=== PATIENT | female | born 1985 | race African-American/Black ===

== ENCOUNTER 2017-03-26 13:54 | Emergency (ER) | payer OTHER ==
[~2017-03-26] VITALS: Ht 162.6 cm; Wt 70.3 kg
[2017-03-26] MEDS ORDERED: RIZA10TA PO (14:18)
[2017-03-26] MEDS ORDERED: IV NORMAL SALINE 1,000ML 1,000 ML IV ONE (15:15)
[2017-03-26] MEDS ORDERED: diphenhydrAMINE 50 MG/ML VIAL IVP ONE (15:15)
[2017-03-26] MEDS ORDERED: DEXAMETHASONE SOD PHOS 4 MG/ML VIAL IV ONE (15:15)
[2017-03-26] MEDS ORDERED: KETOROLAC 15 MG/ML VIAL. IV ONE (15:15)
[2017-03-26] MEDS ORDERED: PROCHLORPERAZINE 10 MG/2 ML VIAL. IV ONE (15:15)
[2017-03-26 16:44] VITALS: BP 117/78
--- NOTE | 2017-03-26 17:23 | ED.ADGEN ---
Past History Past Medical History: No Pertinent History Past Surgical History: No Surgical History Alcohol Use: None Drug Use: None Adult General HPI HPI Patient is a 89-year-old woman, with history of migraine headaches for which she follows with neurology, who presents to the emergency department with complaint of persistent headache over the past 3 days. Patient states she has an appointment tomorrow to follow up with her neurologist and for referral to the migraine specialist. She has been taking her propranolol and other medications at home without relief. She states she's been experiencing typical symptoms of a migraine headache, including photophobia, nausea and vomiting, and left-sided head pain. She denies any change in her symptoms, any weakness, numbness, tingling, fevers or chills, abdominal pain, urinary complaints, exposures or travel. Review of Systems Review of Systems Constitutional: Denies fever or chills [] Eyes: Denies change in visual acuity, redness, or eye pain [] HENT: Denies nasal congestion or sore throat [] Respiratory: Denies cough or shortness of breath [] Cardiovascular: No additional information not addressed in HPI [] GI: Denies abdominal pain, bloody stools or diarrhea [] nausea and vomiting. : Denies dysuria or hematuria [] Musculoskeletal: Denies back pain or joint pain [] Integument: Denies rash or skin lesions [] Neurologic: Denies focal weakness or sensory changes [] Headache, photophobia. Endocrine: Denies polyuria or polydipsia [] Current Medications Current Medications Current Medications Medications (Trade) Dose Ordered Sig/Sina Start Time Stop Time Status Last Admin Dose Admin Dexamethasone Sodium Phosphate (Decadron) 4 mg 1X ONCE 03/26/17 15:15 03/26/17 15:16 DC 03/26/17 15:43 4 MG Diphenhydramine HCl (Benadryl) 25 mg 1X ONCE 03/26/17 15:15 03/26/17 15:16 DC 03/26/17 15:44 25 MG Ketorolac Tromethamine (Toradol) 10 mg 1X ONCE 03/26/17 15:15 03/26/17 15:16 DC 03/26/17 15:43 10 MG Prochlorperazine Edisylate (Compazine) 10 mg 1X ONCE 03/26/17 15:15 5/29/17 15:16 DC 03/26/17 15:43 10 MG Sodium Chloride 1,000 ml @ 1,000 mls/hr 1X ONCE 03/26/17 15:15 03/26/17 16:14 DC 03/26/17 15:43 1,000 MLS/HR Allergies Allergies Allergies Coded Allergies Type Severity Reaction Last Updated Verified Penicillins Allergy Intermediate 03/26/17 Yes amoxicillin Allergy Intermediate 03/26/17 Yes Physical Exam Physical Exam Constitutional: Well developed, well nourished, no acute distress, non-toxic appearance. [] HENT: Normocephalic, atraumatic, bilateral external ears normal, oropharynx moist, no oral exudates, nose normal. [No temporal tenderness. No nystagmus.] Eyes: PERRLA, EOMI, conjunctiva normal, no discharge. [] Neck: Normal range of motion, no tenderness, supple, no stridor. [] Cardiovascular:Heart rate regular rhythm, no murmur, S1, S2, rubs or gallops. [] Lungs & Thorax: Bilateral breath sounds clear to auscultation, no wheezing, rhonchi, rales. [] Abdomen: Bowel sounds normal, soft, no tenderness, no masses, no pulsatile masses. [] Skin: Warm, dry, no erythema, no rash. [] Back: No tenderness, no CVA tenderness. [] Extremities: No tenderness, no cyanosis, no clubbing, ROM intact, no edema. Negative Homans sign. [] Neurologic: Alert and oriented X 3, normal motor function, normal sensory function, no focal deficits noted. [] Psychologic: Affect normal, judgement normal, mood normal. [] Current Patient Data Vital Signs Vital Signs Date Time Temp Pulse Resp B/P (MAP) Pulse Ox O2 Delivery O2 Flow Rate FiO2 03/26/17 16:44 71 18 117/78 (91) 99 03/26/17 14:00 99.0 Room Air EKG EKG Not indicated. [] Radiology/Procedures Radiology/Procedures Not indicated. [] Course & Med Decision Making Course & Med Decision Making Pertinent Labs and Imaging studies reviewed. (See chart for details) Patient complaining of her typical headache symptoms. Denies any concerning recent history or changes. No indication for imaging for additional evaluation at this time, will provide symptom medical management. Patient received Decadron , IV fluids, Compazine, Toradol and Benadryl in the emergency department. On reevaluation, patient states her headache is essentially resolved, photophobia and nausea are fully resolved, and she is ambulating without difficulty in the emergency department. She states that she is ready to be discharged home, as stated she is appointed to follow-up with her neurologist tomorrow. We did discuss concerning symptoms that would prompt return to the emergency department for additional evaluation. Patient discharged home in stable condition with her with plan as above. Final Impression Final Impression [] Problems: Dragon Disclaimer Dragon Disclaimer This electronic medical record was generated, in whole or in part, using a voice recognition dictation system. Departure: Impression: Primary Impression: Headache Disposition: HOME, SELF-CARE Condition: IMPROVED MAURICIO HAYES DO March 26, 2017 17:23
== END 2017-03-26 16:44 | disposition home or self-care (01) ==
LOC: ER 13:54
DX: R51 Headache (principal); G43.909 Migraine, unspecified, not intractable, without status migrainosus; Z88.0 Allergy status to penicillin; Z88.1 Allergy status to other antibiotic agents
CPT/HCPCS: 96361; 96374; 96375; 99284; J0780; J1100; J1200; J1885; J7030